=== PATIENT | male | born 1985 | race African-American/Black ===

== ENCOUNTER 2018-04-14 01:45 | Emergency (ER) | payer MEDICAID, OTHER ==
[~2018-04-14] VITALS: Ht 177.8 cm; Wt 72.6 kg
[~2018-04-14 01:45] MED LIST: DIVA125T2; HAL05; RISO02; SEROQUEL
[2018-04-14 03:14] LABS: HEMATOCRIT. 44.4 % (42.0-52.0); MEAN CORPUSCULAR VOLUME 88.7 fL (80.0-94.0); MEAN PLATELET VOLUME 7.7 fl (7.4-10.4); PLATELET 226 x1000/uL (130-400)
[2018-04-14 03:26] LABS: CHLORIDE 104 mEq/L (98-107); ETHANOL BLOOD < 10 mg/dL
[2018-04-14 04:41] LABS: PLATELET ESTIMATE NORMAL
[2018-04-14 05:06] LABS: AMMONIA 16 uMol/L (<32)
[2018-04-14 05:47] VITALS: BP 146/94
== END 2018-04-14 06:49 | disposition home or self-care (01) ==
LOC: ER 01:45
DX: R41.82 Altered mental status, unspecified (principal); F20.9 Schizophrenia, unspecified
CPT/HCPCS: 36415; 70450; 80053; 80307; 80329; 82140; 82962; 84443; 85025; 99285; G0482; Z7610

== ENCOUNTER 2019-12-17 16:26 | Emergency (ER) | payer OTHER ==
[~2019-12-17] VITALS: Ht 190.5 cm; Wt 82.0 kg
[~2019-12-17 16:26] MED LIST changes: -HAL05; +HALO0.5T2
[2019-12-17] MEDS ORDERED: BACITRACIN ZINC OINT UDPKT TOP ONE (21:00)
[2019-12-17] MEDS ORDERED: LIDOCAINE HCL/PF 1% 10 MG/ML 5ML VIAL IJ ONE (21:00)
[2019-12-17] MEDS ORDERED: HYDROCODONE/ACETAMINOPHEN 5/325MG TABLET PO ONE (21:00)
[2019-12-17] MEDS ORDERED: TETANUS, DIPHTHERIA, PERTUSSIS VAC/PF 0.5ML (>7YR OLD) IM ONE (21:00)
[2019-12-17 21:04] VITALS: BP 138/98
[2019-12-17] MEDS ORDERED: CEPHALEXIN 250MG CAPSULE PO ONE (21:45)
== END 2019-12-17 23:41 | disposition home or self-care (01) ==
LOC: ER 16:26
DX: S62.636B Displaced fracture of distal phalanx of right little finger, initial encounter for open fracture (principal); S01.511A Laceration without foreign body of lip, initial encounter; R68.84 Jaw pain; Y04.2XXA Assault by strike against or bumped into by another person, initial encounter; Y93.89 Activity, other specified; Y92.89 Other specified places as the place of occurrence of the external cause
CPT/HCPCS: 12001; 70486; 73130; 99284; J3490